=== PATIENT | female | born 1990 | race African-American/Black ===

== ENCOUNTER 2017-03-15 04:39 | Emergency (ER) | payer OTHER ==
[~2017-03-15] VITALS: Ht 152.4 cm; Wt 68.0 kg
[~2017-03-15 04:39] MED LIST: BACTRIM DS TAB1 EACH PO; DOXYCYCLINE 10100 MG PO; FLAGYL500 MG PO; FLEXERIL PO; NAPROSYN500 MG PO; NO HOME MEDS; NOHOMEMEDICATIONS; NORCO 5-325 TA1 EACH PO; ULTRAM 50MG TAB50 MG PO
[2017-03-15] MEDS ORDERED: NAPROSYN500 MG PO (05:50)
[2017-03-15 06:20] VITALS: BP 121/69
== END 2017-03-15 06:20 | disposition home or self-care (01) ==
LOC: ER 04:39
DX: S16.1XXA Strain of muscle, fascia and tendon at neck level, initial encounter (principal); S20.211A Contusion of right front wall of thorax, initial encounter; S09.90XA Unspecified injury of head, initial encounter; V49.50XA Passenger injured in collision with unspecified motor vehicles in traffic accident, initial encounter; Y93.89 Activity, other specified; Y92.488 Other paved roadways as the place of occurrence of the external cause; Y99.8 Other external cause status